=== PATIENT | male | born 1975 | race Caucasian/White ===

== ENCOUNTER 2016-07-19 08:25 | Emergency (ER) | payer OTHER | END 2016-07-19 20:20 | disposition home or self-care (01) | LOC: ER 08:25 | DX: R07.9 Chest pain, unspecified (principal); F41.9 Anxiety disorder, unspecified; R11.0 Nausea; R06.02 Shortness of breath; M79.602 Pain in left arm; E78.00 Pure hypercholesterolemia, unspecified; I10 Essential (primary) hypertension; Z87.442 Personal history of urinary calculi; Z90.49 Acquired absence of other specified parts of digestive tract; Z79.899 Other long term (current) drug therapy | CPT/HCPCS: 36415; 96361; 96365; 96366; 96375; J2060; J2550 ==